=== PATIENT | male | born 1985 | race Caucasian/White ===

== ENCOUNTER 2020-12-07 10:43 | Emergency (ER) | payer OTHER ==
[~2020-12-07] VITALS: Ht 180.3 cm; Wt 119.7 kg
[2020-12-07 10:50] VITALS: BP 116/71
[2020-12-07] MEDS ORDERED: KETOROLAC 30 MG/ML VIAL IVP ONE (11:00)
[2020-12-07] MEDS ORDERED: ONDANSETRON 4 MG/2 ML VIAL IVP ONE (11:00)
[2020-12-07] MEDS ORDERED: NACL 0.9% 1,000 ML IV ONE ×3 (11:00→13:05)
[2020-12-07] MEDS ORDERED: MORPHINE SULFATE 4 MG/ML SYR IVP ONE (13:05)
[2020-12-07 14:45] VITALS: BP 137/78
== END 2020-12-07 14:45 | disposition home or self-care (01) ==
LOC: MED 10:43
DX: R11.2 Nausea with vomiting, unspecified (principal); E86.0 Dehydration; R50.9 Fever, unspecified; Z98.890 Other specified postprocedural states
CPT/HCPCS: 96361; 96374; 96375; 99284; J1885; J2270; J2405; J7030